=== PATIENT | male | born 1935 | race Caucasian/White ===

== ENCOUNTER 2016-07-30 16:29 | Emergency (ER) | payer MEDICARE ==
[~2016-07-30 16:29] MED LIST: ALBU.5I NEB; ALPR0.25 PO; AMLO10TA2 PO; ASPI325T PO; CLON0.1T PO; HYDR-3801 PO; HYDR25TA5 PO; LOSA100T PO; METO50TA11 PO; MORP30SU PO; ZOCO20TA PO
--- NOTE | 2016-07-30 16:47 | PD ---
HPI Chief Complaint: Code Blue Time Seen by Provider: 16:33 Travel History International Travel<30 days: No (unobtainable) Contact w/Intl Traveler<30days: No (unobtainable) History of Present Illness HPI 81-year-old male presents the emergency department under cardiac arrest.per EMS patient lives in a long-term care facility. They were rounding approximately one hour prior to finding him unresponsive. Bystander CPR with staff at his care facility was performed. EMS arrived on scene approximate 10 minutes later. EMS work patient under cardiac arrest, ACLS for 30-40 minutes prior to ED arrival. Patient has an asystolic the entire time. Multiple rounds of epi, bicarbonate, etc. without improvement. Apparently the physician at patient's care facility wanted to call the code, but patient's "wants everything done " and he was transported here. PFSH Past Medical History Hx Anticoagulant Therapy: Yes (325MG ASA DAILY) Arthritis: No Autoimmune Disease: No Blood Disorders: No Anxiety: Yes Depression: Yes Heart Rhythm Problems: No Cancer: Yes (melanoma chest and left wrist) Cardiovascular Problems: Yes (HTN) High Cholesterol: Yes Chemotherapy: No Chest Pain: No Congestive Heart Failure: No COPD: Yes Cerebrovascular Accident: Yes Diabetes: Yes (borderline) Diminished Hearing: Yes ([place]) Gastrointestinal Disorders: Yes (GALL STONES AND 2 ABD SURGERIES FOR ADHESIONS) GERD: Yes Glaucoma: No Genitourinary: Yes Headaches: Yes Hepatitis: No Hiatal Hernia: Yes Hypertension: Yes Immune Disorder: No Implanted Vascular Access Dvce: No Kidney Stones: Yes Musculoskeletal: Yes (HERNIATED DISC LUMBAR) Neurologic: Yes Psychiatric: No Reproductive: No Respiratory: Yes (COPD) Immunizations Current: Yes Migraines: No Myocardial Infarction: No Radiation Therapy: No Renal Failure: No Seizures: No Sickle Cell Disease: No Sleep Apnea: Yes (NEVER BEEN CONFIRMED WITH SLEEP STUDY) Thyroid Disease: No Ulcer: No Past Surgical History Abdominal Surgery: Yes (ADHESION REPAIR) AICD: No Appendectomy: Yes Arteriovenous Shunt: No Cardiac Surgery: No Ear Surgery: No Endocrine Surgery: No Eye Surgery: No Genitourinary Surgery: Yes (KIDNEY STONES LIP) Gynecologic Surgery: No Insulin Pump: No Joint Replacement: No Neurologic Surgery: Yes (CERVICAL FUSION 30 YRS AGO) Oral Surgery: No Pacemaker: No Thoracic Surgery: No Other Surgery: Yes Social History Alcohol Use: No Tobacco Use: No (former) Substance Use: No Allergies-Medications (Allergen,Severity, Reaction): Coded Allergies: Quinidine (Verified Allergy, Severe, UNKNOWN, 05/07/16) MRI PRECAUTION (Verified Adverse Reaction, Severe, PT TOO LARGE. DR. SALAZAR NOTIFIED-08/10/07. 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 Read complete instructions carefully before using. Hydralazine (Hydralazine HCl) 100 Mg Tab 100 Mg PO TID Take with meals Losartan (Losartan Potassium) 100 Mg Tab 100 Mg PO DAILY Zocor (Simvastatin) 20 Mg Tab 20 Mg PO HS Amlodipine (Amlodipine Besylate) 10 Mg Tab 10 Mg PO DAILY Clonidine (Clonidine HCl) 0.1 Mg Tab 0.3 Mg PO TID Aspirin 325 Mg Tab 325 Mg PO DAILY Hydrochlorothiazide 25 Mg Tab 25 Mg PO DAILY Metoprolol Succinate ER 24 HR (Metoprolol Succinate) 50 Mg Tab 50 Mg PO BID Review of Systems ROS Limitations: Clinical Condition, Intubated, Altered Mental Status Physical Exam Exam Limitations: Clinical Condition, Altered Mental Status Narrative GENERAL: obese elderly male in cardiac arrest with active CPR SKIN: Warm and dry. HEAD: Normocephalic. EYES: Pupils equal and round.nonreactive. 5 mm. ENT: Combitube in place NECK:supple CARDIOVASCULAR: asystolic with active CPR RESPIRATORY: good bilateral breath sounds GASTROINTESTINAL: Abdomen soft, distended MUSCULOSKELETAL: IO and right tibia NEUROLOGICAL: GCS 3 MDM Medical Decision Making Medical Screen Exam Complete: Yes Emergency Medical Condition: Yes Medical Record Reviewed: Yes Differential Diagnosis 81-year-old male here as a cardiac arrest. Down time up to 1 hour prior to finding patient asystolic. Appropriate ACLS per EMS prior to arrival for 30-40 minutes. differential includes ID, PE, pneumothorax, hypoxia, electrolyte abnormality, hypoglycemia. Narrative Course Patient met by myself upon emergency department arrival. Combitube in place with good bilateral breath sounds. CPR was stopped. Patient is asystolic without palpable pulses. no evidence of cardiac activity on ultrasound.further resuscitative efforts at this time are futile.Time of 1631. Diagnosis Primary Impression: Cardiac arrest Disposition: 20 Condition: Alyse Humphreys MD Jul 30, 2016 16:47
== END 2016-07-30 18:53 | disposition expired ==
LOC: NEPI 16:29
DX: I46.9 Cardiac arrest, cause unspecified (principal)
CPT/HCPCS: 92950